=== PATIENT | male | born 1940 | race Caucasian/White ===

== ENCOUNTER 2016-12-26 18:53 | Emergency (ER) | payer MEDICARE, OTHER ==
[~2016-12-26] VITALS: Ht 160 cm; Wt 76.8 kg
[~2016-12-26 18:53] MED LIST: BIMA2.5D5 BOTH_EYES; CARB1TAB14 PO; CARB1TAB36 PO; CHOL100043 PO; CYAN1TAB52 SL; DUTA0.5C2 PO; GALA16CA PO; LEVO750T9 PO; MEMA28CA PO; METR500T PO; TAMS0.4C98 PO; UBID1CAP52 PO
[2016-12-26 19:27] VITALS: BP 137/85; PULSE 68; RESP 16; O2SAT 100
--- NOTE | 2016-12-26 20:18 | ED.REPORT ---
HPI-Trauma Multiple Date of Service Dec 26, 2016 ED Provider: Jw Olmedo MD The patient is a 76 year old male with a history of Parkinson's and dementia who presents to the ED with a forehead injury secondary to a GLF that occurred this afternoon. The patient is typically unsteady and was reportedly found by his director of pulmonary unit on the ground this afternoon. He was laying on the ground for an unknown period of time until the patient states it was only 5 or 10 minutes. The patient's reports that he is acting like his normal self. The patient has also been complaining of left knee abrasion. History is limited due to the patient's baseline mental status. Family feels that they can generally safely managed patient at home and that this fall was an uncommon event. Nursing Notes Stated Complaint: FALL, HEAD LACERATION/SENT FROM URGENT CARE Chief Complaint: Multiple Trauma/Fall Nursing Notes Reviewed: Yes Allergies: Coded Allergies: cefdinir (Verified Allergy, Unknown, 12/26/16) metronidazole (Verified Allergy, Unknown, 12/26/16) haloperidol (Verified Adverse Reaction, Severe, should not take r/t parkinson's, 12/26/16) Scheduled Bimatoprost (Lumigan) 45 Drop/2.5 Ml Ophsoln 1 DROP BOTH_EYES HS Carbidopa/Levodopa 25-100 mg (Carbidopa/Levodopa 25-100 mg) 1 Each Tablet 1 TABLET PO QID 0900, 1200, 1500, 1800 Carbidopa/Levodopa ER 25-100 mg (Carbidopa/Levodopa ER 25-100 mg) 1 Each Tablet 1 TABLET PO 1200, 1500 Cholecalciferol (Vitamin D3) (Vitamin D) 1,000 Unit Tablet 4,000 UNIT PO 0900, 1200 Cyanocobalamin/Folic Acid (B-12 1,000 Mcg Sub Tablet) 1 Each Tab.subl 1 EACH SL DAILY Galantamine ER (Galantamine ER) 16 Mg Cap24h.pel 16 MG PO DAILYWM Levofloxacin (Levaquin) 750 Mg Tablet 750 MG PO DAILY Memantine HCl (Namenda-XR) 28 Mg Cap.spr.24 28 MG PO DAILYWM Metronidazole (Flagyl) 500 Mg Tablet 500 MG PO Q8H Tamsulosin (Flomax) 0.4 Mg Capsule 0.4 MG PO HS Ubidecarenone/Vit E Acetate (Co Q-10 100 mg Softgel) 1 Each Capsule 1 EACH PO DAILY Scheduled PRN Dutasteride (Avodart) 0.5 Mg Capsule 0.5 MG PO Q3 Days HS PRN PRN BPH General Time Seen by Provider: 20:23 Chief Complaint Head pain/injury Hx Obtained From: Patient, Spouse Arrived By: Walk-in Onset Occurred: Just prior to arrival Symptom Duration: Since onset Progression Since Onset: Unchanged Location: : Head Quality: Painful Severity: Current: Mild Severity: Maximum: Mild Associated with: Reports: Headache, Unable to walk, Denies: Loss of consciousness... Pertinent Negative: Pt denies other symptoms Recent Healthcare: No recent doctor visit, No recent hospitalization Past Medical History Past Medical History Parkinsons BPH Reports: Dementia Past Surgical History None reported. Family History noncontributory Smoking History Unknown if Ever Smoker Social History Alcohol Use: Denies alcohol use Drug Use: Denies drug use Other Social History: Good social support, Ambulatory Status Independent Review of Systems Musculoskeletal: Reports: Joint pain (Left knee abrasion) Neurologic: Reports: Headache Complete sys rev & neg: except as marked. Physical Exam Initial Vital Signs Vital Signs (First) Date Time Temp Pulse Resp B/P Pulse Ox O2 Delivery O2 Flow Rate FiO2 12/26/16 19:27 36.6 68 16 137/85 100 Room Air Initial VS: Reviewed Skin: Warm, Dry, No cyanosis Psychiatric: Mood/affect normal, Behavior normal, Normal thought content General/Constitutional: Awake, Alert, No acute distress Head / Eyes: Atraumatic, Normocephalic, PERRL Trauma - General: Positive: Abrasion (abrasion right forehead 2x2cm) Neck: Atraumatic, Supple, Non-tender, No midline vertebral tend C-Spine - no evidence of bony deformity, step off's or tenderness Respiratory / Chest: Atraumatic, Breath sounds NL, Breath sounds = bilat, No respiratory distress Cardiovascular: Heart rate NL, Regular rhythm, Heart sounds NL, No gallop, No murmurs, No rubs Abdomen: Atraumatic, Soft, Non-tender, No distention Back: Atraumatic, Inspection NL Neurologic: Oriented X3, Speech NL, No motor deficits, No sensory deficits, CN II - XII intact, Reflexes equal bilat, Cerebellar NL Upper Extremity / MS: Atraumatic, Neurologic intact, Vascular intact Lower Extremity / Pelvis / MS: Neurologic intact, Vascular intact Trauma / Burn / Environmental: Positive: Abrasion (superficial abrasion over left knee ) Interpretation & Diagnostics CT Head Interpretation IMPRESSION: No acute intracranial disease process. Dictated by: Misty Carpenter MD, PhD on 12/26/2016 at 20:57 Study: Head CT no contrast Interpretation / Wet Read by: Interpret - Radiologist Re-Eval/Medical Decision Med Decision/Clinical Course The patient is a 76 year old male with a history of Parkinson's and dementia who presents to the ED with a forehead injury secondary to a GLF that occurred this afternoon. The patient is typically unsteady and was reportedly found by his director of pulmonary unit on the ground this afternoon. He was laying on the ground for an unknown period of time until the patient states it was only 5 or 10 minutes. The patient's reports that he is acting like his normal self. The patient has also been complaining of left knee abrasion. History is limited due to the patient's baseline mental status. Family feels that they can generally safely managed patient at home and that this fall was an uncommon event. Here in the emergency department the patient is afebrile, medically stable with examination as above. Full head to toe survey reveals no other associated injuries. Head CT IMPRESSION: No acute intracranial disease process. Patient was noted to have abrasion about his forehead and left knee which were treated by irrigation and placement of nonadherent dressings. There were no lacerations requiring sutures. Tertiary exam was reassuring. Discussed with family and patient felt to be safe for discharge. They would like to go home and get rest. Prior to discharge follow-up and return precautions were reviewed in detail with the patient and his family who verbalized understanding and agreement with the plan. The patient was discharged in stable condition. Re-Evaluation/Progress : Time of Eval: 20:43 Patient Status: Condition improved Re-Evaluation/Progress Note: The patient's symptoms have improved upon recheck. All questions are addressed. is informed of his results and diagnosis. The patient understands and agrees with the intended treatment plan. Counseled Regarding: Diagnosis, Need for follow-up, When/why to return to ED Discharge & Departure Impression: Primary Impression: Minor head injury Encounter type: initial encounter Qualified Code: S00.90XA - Unspecified superficial injury of unspecified part of head, initial encounter Additional Impressions: Abrasion head Fall from ground level Unsteady gait History of Parkinson's disease Abrasion of left knee Encounter type: initial encounter Qualified Code: S80.212A - Abrasion, left knee, initial encounter Disposition: Home Discharge Condition All VS Reviewed: Yes Condition: Improved Patient Instructions: Head Injury (ED), Laceration (ED) Additional Instructions: Thank you for seeking care at emergency room. Our primary goal today in the ED was to evaluate you for any life-threatening conditions. Your evaluation was reassuring. You should follow-up with your primary doctor in the next week. You should return to the ED immediately if you develop headache, fevers, vomiting, lightheadedness, decreased consciousness, weakness or any other concerning signs or symptoms. Thank you for letting us partake in your care today. Referrals: OTHER,PHYSICIAN (PCP) (Family) Scribe Attestation Portions of this note were transcribed by Nani Lira. I, Dr. Olmedo personally performed the history, physical exam and medical decision-making; I reviewed and confirmed the accuracy of the information in the transcribed note. Jw Olmedo MD Dec 26, 2016 20:18 NANI LIRA Dec 26, 2016 20:25
--- NOTE | 2016-12-26 21:01 | DRSVH ---
PROCEDURE: CT BRAIN WITHOUT CONTRAST ([id number]) INDICATIONS: head trauma TECHNIQUE: Noncontrast 4.5 mm thick angled axial sections acquired from the foramen magnum to the vertex, with c oronal reformats. COMPARISON: None. FINDINGS: Image quality: Excellent. CSF spaces: Basal cisterns are patent. No extra-axial fluid collections. The ventricles are symmet elaina in size and shape. Brain: No intracranial bleeds or masses. There is cerebral volume loss for age, with resultant vent ricular and sulcal prominence. There are periventricular and deep white matter chronic small vessel ischemic changes. There is intracranial internal carotid artery atherosclerosis. Skull and face: Calvarium and visualized facial bones appear intact, without suspicious lesions. Sinuses: Visualized sinuses and mastoids are clear. IMPRESSION: No acute intracranial disease process. Dictated by: Misty Carpenter MD, PhD on 12/26/2016 at 20:57 Approved by: Misty Carpenter MD, PhD on 12/26/2016 at 20:59
[2016-12-26 21:57] VITALS: BP 157/87; PULSE 86; RESP 18; O2SAT 98
== END 2016-12-26 22:02 | disposition home or self-care (01) ==
LOC: SED 18:53
DX: S09.8XXA Other specified injuries of head, initial encounter (principal); S00.81XA Abrasion of other part of head, initial encounter; S80.212A Abrasion, left knee, initial encounter; W18.39XA Other fall on same level, initial encounter; Y93.89 Activity, other specified; Y92.89 Other specified places as the place of occurrence of the external cause; Y99.8 Other external cause status; R26.81 Unsteadiness on feet; G31.83 Neurocognitive disorder with Lewy bodies; Z88.1 Allergy status to other antibiotic agents; Z88.5 Allergy status to narcotic agent; Z88.8 Allergy status to other drugs, medicaments and biological substances